=== PATIENT | male | born 1985 | race Caucasian/White ===

== ENCOUNTER 2017-04-09 16:15 | Emergency (ER) | payer OTHER ==
[2017-04-09 16:43] VITALS: BP 110/55; PULSE 104; TEMP 98.6; BMI 31.2
--- NOTE | 2017-04-09 16:44 | PDOC ---
Rapid Medical Evaluation Time Seen by Provider: 04/09/17 16:37 Medical Evaluation: Allergies Allergy/AdvReac Type Severity Reaction Status Date / Time No Known Allergies Allergy Verified 08/16/14 16:37 04/09/17 16:38 I have performed a brief in-person evaluation of this patient. The patient presents with a chief complaint of: hx of migraines, RAMIREZ since friday , saw doctor on friday, given amoxillicin for strep, + change in vision with "floaters", +nausea, +photophobia with sunlight, Tylenol taken without relief, last taken this morning at 11 am, received "shot" from PCP, no relief Pertinent physical exam findings: no focal neurological deficits I have ordered the following: IVF, Toradol, Reglan, Benadryl The patient will proceed to the ED for further evaluation.
[2017-04-09] MEDS ORDERED: KETOROLAC TROMETHAMINE 30 MG/1 ML VIAL IVPUSH ONE (16:45)
[2017-04-09] MEDS ORDERED: SODIUM CHLORIDE 0.9% 1000 ML INFUS.BAG IV ONE (16:45)
[2017-04-09] MEDS ORDERED: METOCLOPRAMIDE HCL INJECTION 10 MG/2 ML VIAL IVPUSH ONE (16:45)
--- NOTE | 2017-04-09 18:12 | PDOC ---
History of Present Illness - General Chief Complaint: Headache Stated Complaint: HEADACHE Time Seen by Provider: 04/09/17 16:37 History Source: Patient Exam Limitations: No Limitations - History of Present Illness Initial Comments: 04/09/17 18:07 Patient came for evaluation of persistent frontal and maxillary sinus headache. Patient was treated with Augmentin 4 days ago for a strep infection. was not tested but went and saw his PMD who identified a probable strep pharyngitis that patient admits to having upper respiratory infection symptoms as well. Since that time has had some ringing in to his ears, continued nasal congestion that is clearing where it had been a thick green mucus. Patient denies fever, denies visual changes, denies any numbness or tingling to hands or feet or any other neurologic changes. Used ibuprofen last night with some relief. Severity: Yes: mild, moderate Associated Symptoms: reports: ringing in ears. denies: fever/chills Past History - Travel Traveled outside of the country in the last 30 days: No Close contact w/someone who was outside of country & ill: No - Past Medical History Allergies/Adverse Reactions: Allergies Allergy/AdvReac Type Severity Reaction Status Date / Time No Known Allergies Allergy Verified 04/09/17 16:42 Home Medications: Ambulatory Orders Quetiapine Fumarate [Seroquel] 200 mg PO AM 08/16/14 Quetiapine Fumarate [Seroquel] 400 mg PO HS 08/16/14 Amox-Tr/K Cl [Augmentin 875Mg Tablet] 1 tab PO BID #14 tablet 04/09/17 Amoxicillin/Potassium Clav [Augmentin 875-125 Tablet] 1 each PO BID 04/09/17 COPD: No Psychiatric Problems: Yes (SCHIZO-EFFECTIVE) - Suicide/Smoking/Psychosocial Hx Smoking History: Never smoked Information on smoking cessation initiated: No Hx Alcohol Use: No Drug/Substance Use Hx: No Substance Use Type: None Review of Systems - Review of Systems Able to Perform ROS?: Yes Is the patient limited Micronesian proficient: Yes Constitutional: Yes: Symptoms Reported, See HPI, Malaise. No: Chills, Fever HEENTM: Yes: Symptoms Reported, See HPI, Nose Congestion. No: Eye Pain, Throat Pain Respiratory: Yes: See HPI. No: Symptoms reported, Cough : No: Symptoms Reported Musculoskeletal: Yes: Symptoms Reported Integumentary: Yes: See HPI. No: Symptoms Reported Neurological: Yes: Symptoms reported, See HPI, Headache (frontal ) All Other Systems: Reviewed and Negative *Physical Exam - Vital Signs Last Vital Signs Temp Pulse Resp BP Pulse Ox 98.6 F 104 H 19 110/55 99 04/09/17 16:38 04/09/17 16:38 04/09/17 16:38 04/09/17 16:38 04/09/17 16:38 - Physical Exam General Appearance: Yes: Nourished, Appropriately Dressed, Apparent Distress HEENT: positive: MADINA, Pharynx Normal, Nasal Congestion, Rhinorrhea, Sinus Tenderness (fullness and tender to frontal and max sinuses ). negative: Normal ENT Inspection, TMs Normal (bilateral congested, landmarks visualized, but congested) Neck: positive: Supple. negative: Tender, Lymphadenopathy (R), Lymphadenopathy (L) Respiratory/Chest: positive: Lungs Clear, Normal Breath Sounds Gastrointestinal/Abdominal: positive: Soft. negative: Tender Extremity: positive: Normal Capillary Refill, Normal Inspection. negative: Tender Integumentary: positive: Dry, Warm, Pale Neurologic: positive: tile picker II-XII NML intact, Fully Oriented, Alert, Normal Mood/ Affect, Normal Response, Motor Strength 5/5 Progress Note - Progress Note Progress Note: Take, will continue Augmentin for additional week to treat sinusitis and have patient continue conservative measures. *DC/Admit/Observation/Transfer Diagnosis at time of Disposition: Sinus headache - Discharge Dispostion Disposition: HOME Condition at time of disposition: Stable Admit: No - Prescriptions Prescriptions: Amox-Tr/K Cl [Augmentin 875Mg Tablet] 1 tab PO BID #14 tablet - Referrals Referrals: Gabriele Watts MD [Primary Care Provider] - - Patient Instructions Printed Discharge Instructions: DI for Sinusitis Additional Instructions: Rest, drink lots of fluids: Teas, water, soups Saltwater gargles. Consider humidifier in room at night Steamy showers/seem to face break up mucus Avoid contact with allergens, exposure to pollens, close windows on a windy day Lots of handwashing and good hygiene Tylenol or Motrin for fever and pain Continue Augmentin for additional one week Followup with private physician in one to 2 days as needed Return to emergency department for worsened symptoms, fevers, dehydration - Post Discharge Activity
== END 2017-04-09 18:16 | disposition home or self-care (01) ==
LOC: JERFT 16:15
DX: J32.0 Chronic maxillary sinusitis (principal); J32.1 Chronic frontal sinusitis
CPT/HCPCS: 99281-25

== ENCOUNTER 2017-05-16 19:36 | Inpatient (IN) | payer OTHER ==
--- NOTE | 2017-05-16 19:59 | PDOC ---
Rapid Medical Evaluation Time Seen by Provider: 05/16/17 19:53 Medical Evaluation: Allergies Allergy/AdvReac Type Severity Reaction Status Date / Time No Known Allergies Allergy Verified 05/16/17 19:54 05/16/17 19:57 I have performed a brief in-person evaluation of this patient. The patient presents with a chief complaint of:Numbness to R hand an hr and 1/2 ago. Dx w/ several b/l subacute SDH on MRI 2 days ago and was seen in ED yesterday where plan was to admit but pt signed out AMA. NS is Dr Gómez. No RAMIREZ, dizziness, blurry vision or focal weakness Pertinent physical exam findings: Stable w/ no obvious asymmetry, strength intact b/l I have ordered the following:labs The patient will proceed to the ED for further evaluation.
--- NOTE | 2017-05-16 20:22 | PDOC ---
History of Present Illness <Janie Samson - Last Filed: 05/16/17 21:30> - History of Present Illness Initial Comments: 05/16/17 20:55 The patient is a 31 year old male with a history of schizo-affective disorder who presents for evaluation of numbness. 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 He reports onset of severe headache at the beginning of April 2017. He states that he never underwent imaging of his head and since then his symptoms have improved with him only having intermittent headaches currently. He states that he had an MRI done on an outpatient basis 2 day ago and was found to have multiple subdural hematomas with a 17mm left frontalpariatel hematoma and 15mm right frontal parietal hematoma with subacute blood products without signs of herniation prompting his neurologist to sent him to the ED for further evaluation yesterday. The patient left AMA after eval by Dr. Gómez with neurosurgery, but re-presents today after a 20 minute episode of right arm numbness prompting his presentation today. The patient is currently asymptomatic and denies any fevers, chills, headache, vision changes, SOB, chest pain, nausea, vomiting, abdominal pain, or changes with urination or bowel movements. <León Cortez - Last Filed: 05/16/17 22:04> <Yazmin Montes - Last Filed: 05/17/17 22:56> - General Chief Complaint: Revisit,Radiology Variance Stated Complaint: NUMBNESS Time Seen by Provider: 05/16/17 19:53 Past History <Janie Samson - Last Filed: 05/16/17 21:30> - Past Medical History COPD: No Psychiatric Problems: Yes (SCHIZO-EFFECTIVE) - Suicide/Smoking/Psychosocial Hx Smoking History: Never smoked Hx Alcohol Use: No Drug/Substance Use Hx: No Substance Use Type: None <León Cortez - Last Filed: 05/16/17 22:04> <Yazmin Montes - Last Filed: 05/17/17 22:56> - Past Medical History Allergies/Adverse Reactions: Allergies Allergy/AdvReac Type Severity Reaction Status Date / Time No Known Allergies Allergy Verified 05/16/17 19:54 Home Medications: Ambulatory Orders Quetiapine Fumarate [Seroquel] 200 mg PO AM 08/16/14 Review of Systems - Review of Systems Comments:: 05/16/17 20:56 Constitutional: No fevers, chills, fatigue, malaise HEENT: No Rhinorrhea, nasal congestion, visual changes Cardiovascular: No chest pain, syncope, palpitations, lightheadedness Respiratory: No Cough, SOB, Hemoptysis, Gastrointestinal: No Abdominal pain, Nausea, Vomiting, Constipation, Diarrhea, Melena Genitourinary: No Dysuria, Frequency, Urgency, Hesitancy, Hematuria, Flank pain Musculoskeletal: No Myalgia, arthralgia Skin: No rashes, itching, bruising, pallor Neurologic: Numbness. No Headache, Dizziness, Weakness, or Tingling Psychiatric: No Hallucinations. No SI or HI <León Cortez - Last Filed: 05/16/17 22:04> *Physical Exam - Vital Signs Last Vital Signs Temp Pulse Resp BP Pulse Ox 98.7 F 78 19 137/102 98 05/16/17 19:54 05/16/17 19:54 05/16/17 19:54 05/16/17 19:54 05/16/17 19:54 <Janie Samson - Last Filed: 05/16/17 21:30> - Vital Signs Last Vital Signs Temp Pulse Resp BP Pulse Ox 98.7 F 78 19 137/102 98 05/16/17 19:54 05/16/17 19:54 05/16/17 19:54 05/16/17 19:54 05/16/17 19:54 - Physical Exam Comments: 05/16/17 20:57 General Appearance: Nourished. No Apparent Distress HEENT: EOMI, MADINA. No Pharyngeal Erythema, Tonsillar Exudate, Tonsillar Erythema Neck: No Cervical Lymphadenopathy Respiratory/Chest: Lungs Clear, Normal Breath Sounds. No Crackles, Rales, Rhonchi, Wheezing Cardiovascular: Regular Rhythm, Regular Rate. No Murmur, Gallops, Rubs Gastrointestinal/Abdominal: Normal Bowel Sounds, Soft. No Guarding, Rebound, Tenderness Musculoskeletal: No CVA Tenderness Extremity: Normal Capillary Refill Integumentary: Normal Color, Dry, Warm Neurologic: slag worker II-XII NML intact, Fully Oriented, Alert, Normal Mood/Affect, Normal Response, Motor Strength 5/5. Normal Finger to Nose and Heel to [place] <León Cortez - Last Filed: 05/16/17 22:04> - Vital Signs Last Vital Signs Temp Pulse Resp BP Pulse Ox 99.4 F 77 18 119/69 100 05/17/17 22:00 05/17/17 22:00 05/17/17 22:00 05/17/17 22:00 05/17/17 21:00 <Yazmin Montes - Last Filed: 05/17/17 22:56> ED Treatment Course - LABORATORY CBC & Chemistry Diagram: 05/16/17 20:56 05/16/17 20:56 - ADDITIONAL ORDERS Additional order review: 05/16/17 20:56 RBC 5.58 MCV 88.3 MCHC 34.1 RDW 13.8 MPV 10.7 Neutrophils % 65.5 Lymphocytes % 25.0 Monocytes % 6.4 Eosinophils % 2.3 D Basophils % 0.8 <Janie Samson - Last Filed: 05/16/17 21:30> - LABORATORY CBC & Chemistry Diagram: 05/16/17 20:56 05/16/17 20:56 <León Cortez - Last Filed: 05/16/17 22:04> - LABORATORY CBC & Chemistry Diagram: 05/16/17 20:56 05/16/17 20:56 - ADDITIONAL ORDERS Additional order review: Laboratory Results 05/17/17 12:10 Blood Type O POSITIVE Antibody Screen Negative 05/16/17 20:56 RBC 5.58 MCV 88.3 MCHC 34.1 RDW 13.8 MPV 10.7 Neutrophils % 65.5 Lymphocytes % 25.0 Monocytes % 6.4 Eosinophils % 2.3 D Basophils % 0.8 <Yazmin Montes - Last Filed: 05/17/17 22:56> Medical Decision Making - Medical Decision Making 05/16/17 21:10 Dr. La was paged and notified via phone service. Second page was placed at 21:30. <Janie Samson - Last Filed: 05/16/17 21:30> - Medical Decision Making 05/16/17 20:57 The patient is a 31 year old male with a history of schizo-affective disorder who presents for evaluation of numbness. The patient's symptoms are likely related to the patient's subdural hematomas. We believe that the patient should be admitted for further management and monitoring. We discussed at length with the patient about being admitted to the hospital and the patient informed us that he will not leave AMA again and wishes to cooperate with the admission. We will obtain a cbc, cmp, coags to evaluate further. The patient appears clinically well on exam with a normal neurological exam. We will continue to monitor and reassess. 05/16/17 22:04 We discussed the case with Dr. La who accepted the patient for admission. <León Cortez - Last Filed: 05/16/17 22:04> *DC/Admit/Observation/Transfer <Janie Samson - Last Filed: 05/16/17 21:30> - Discharge Dispostion Admit: Yes <León Cortez - Last Filed: 05/16/17 22:04> <Yazmin Montes - Last Filed: 05/17/17 22:56> Diagnosis at time of Disposition: Subdural hematoma - Discharge Dispostion Condition at time of disposition: Stable Attending Attestation - Resident Resident Name: Lóen Cortez - ED Attending Attestation I have performed the following: I have examined & evaluated the patient, The case was reviewed & discussed with the resident, I agree w/resident's findings & plan - HPI HPI: 05/17/17 22:54 Pt comes for admission. He was here yesterday for the same. He had to leave fur to personal issued. He returns now with nonspecific neurologic complaints. - Physicial Exam PE: 05/17/17 22:55 Agree with resident exam. - Medical Decision Making 05/17/17 22:56 Pt admitted to [facility]. We will not repeat imaging studies. <Yazmin Montes - Last Filed: 05/17/17 22:56>
[2017-05-16 21:04] LABS: BASO % 0.8 % (0-2.0); EOS % 2.3 % (0-4.5); HEMATOCRIT 49.2 % (35.4-49); HEMOGLOBIN 16.8 GM/dL (11.7-16.9); MCH 30.1 pg (25.7-33.7); MCHC 34.1 g/dl (32.0-35.9); MEAN CELL VOLUME 88.3 fl (80-96); MEAN PLT VOLUME 10.7 fl (7.5-11.1); MONO % 6.4 % (3.8-10.2); NEUT % 65.5 % (42.8-82.8); PLATELET COUNT 176 K/MM3 (134-434); RBC 5.58 M/mm3 (4.00-5.60); RDW 13.8 % (11.9-15.9); WHITE BLOOD COUNT 8.8 K/mm3 (4.0-10.0)
[2017-05-16 21:29] LABS: INR 1.04 (0.82-1.09); PROTHROMBIN TIME (PATIENT) 11.7 SEC (9.98-11.88)
[2017-05-16 21:44] LABS: ALBUMIN 4.1 g/dl (3.4-5.0); ALK PHOS 97 U/L (45-117); ANION GAP 12 (8-16); BILIRUBIN,TOTAL 0.9 mg/dL (0.2-1.0); BLOOD UREA NITROGEN 14 mg/dL (7-18); CALCIUM 8.6 mg/dL (8.5-10.1); CHLORIDE 105 mmol/L (98-107); CO2 26 mmol/L (21-32); CREATININE 1.1 mg/dL (0.7-1.3); GLUCOSE,RANDOM 82 mg/dL (74-106); POTASSIUM 3.9 mmol/L (3.5-5.1); SGOT/AST 20 U/L (15-37); SGPT/ALT 30 U/L (12-78); SODIUM 143 mmol/L (136-145); TOT PROT 8.1 g/dl (6.4-8.2)
--- NOTE | 2017-05-16 22:40 | HP ---
Admitting History and Physical - Admission History of Present Illness: The patient is a 31 year old male with a history of schizo-affective disorder who presents for evaluation of numbness. 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 He reports onset of severe headache at the beginning of April 2017. He states that he never underwent imaging of his head and since then his symptoms have improved with him only having intermittent headaches currently. He states that he had an MRI done on an outpatient basis 2 day ago and was found to have multiple subdural hematomas with a 17mm left frontalpariatel hematoma and 15mm right frontal parietal hematoma with subacute blood products without signs of herniation prompting his neurologist to sent him to the ED for further evaluation yesterday. The patient left AMA after eval by Dr. Gómez with neurosurgery, but re-presents today after a 20 minute episode of right arm numbness prompting his presentation today. The patient is currently asymptomatic and denies any fevers, chills, headache, vision changes, SOB, chest pain, nausea, vomiting, abdominal pain, or changes with urination or bowel movements. History Source: Patient, Medical Record Limitations to Obtaining History: No Limitations - Smoking History Smoking history: Never smoked - Alcohol/Substance Use Hx Alcohol Use: No - Social History Usual Living Arrangement: Yes: With Parent ADL: Independent History of Recent Travel: No Home Medications - Allergies Allergies/Adverse Reactions: Allergies Allergy/AdvReac Type Severity Reaction Status Date / Time No Known Allergies Allergy Verified 05/16/17 19:54 - Home Medications Home Medications: Ambulatory Orders Quetiapine Fumarate [Seroquel] 200 mg PO AM 08/16/14 Review of Systems - Review of Systems Constitutional: reports: Other (headache >2 moths ( since mid Mar )). denies: Chills, Fever, Lethargy, Loss of Appetite HENT: reports: No Symptoms Neck: reports: No Symptoms Cardiovascular: reports: No Symptoms. denies: Chest Pain, Palpitations, Shortness of Breath Respiratory: reports: No Symptoms Gastrointestinal: reports: No Symptoms Genitourinary: reports: No Symptoms Breasts: reports: No Symptoms Reported Musculoskeletal: reports: No Symptoms Integumentary: reports: No Symptoms Neurological: reports: No Symptoms, Other (motor 5/5 equal bilaterally). denies : Confusion, Incoordination, Numbness, Parasthesia Endocrine: reports: No Symptoms Hematology/Lymphatic: reports: No Symptoms Psychiatric: reports: No Symptoms Physical Examination Vital Signs: Vital Signs Temperature 98.7 F 05/16/17 19:54 Pulse Rate 78 05/16/17 19:54 Respiratory Rate 19 05/16/17 19:54 Blood Pressure 137/102 05/16/17 19:54 O2 Sat by Pulse Oximetry (%) 98 05/16/17 19:54 Constitutional: Yes: Well Nourished, No Distress, Calm Eyes: Yes: Conjunctiva Clear, EOM Intact HENT: Yes: Atraumatic, Normocephalic Neck: Yes: Supple, Trachea Midline Cardiovascular: Yes: Regular Rate and Rhythm Respiratory: Yes: Regular Gastrointestinal: Yes: Normal Bowel Sounds Renal/: Yes: WNL Breast(s): Yes: WNL Musculoskeletal: Yes: WNL. No: Muscle Pain, Muscle Weakness Extremities: Yes: WNL. 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
[2017-05-17 01:23] VITALS: BMI 31.1
--- NOTE | 2017-05-17 09:06 | PN ---
Progress Note (short form) - Note Progress Note: NEUROSURGERY Pt seen night in ED H/A with N/V 6 weeks ago after MMA bout, H/A better since 3 weeks ago, only mild now 5/10 Been taking motrin Seen in ED night and advised to consider SDH evacuation, pt signed out AMA Re-presented yesterday after 20 min episode of RT arm numbness, which subsided General exam unremarkable CN/Motor/Sensory/DTR/gait/cerebellar exams normal Brain MRI- moderate B fronto-parietal subacute-chronic SDH with cortical mass effect, max diameter about 1.6-1.7 cm; L slightly larger than R; no brain edema , HCP, shift Pros and cons of expectant tx vs surgical drainage once again discussed and pt opts for surgical intervention Risks of surgery- bleeding, infection, stroke, sz, coma, DVT/PE, coma, , general anesthesia Keppra for sz prophylaxis/control Repeat had CT to r/o acute blood Logistics issue with his insurance plan discussed on elective procedure Hematology input to assess role of platelets given prior motrin use All questions answered Care d/w TEODORA
[2017-05-17] MEDS: levETIRAcetam 500 MG TABLET (FP) PO SCH ×2 (10:18→21:44)
--- NOTE | 2017-05-17 13:36 | CONSULT ---
Consult Consult Specialty:: Hematology Referred by:: Neurosurgery Reason for Consultation:: Requires neurosurgery 05/19. Concern about hemostasis with recent NSAID use. - History of Present Illness Chief Complaint: As above. Patient with headache, and history of trauma ( sparring - martial art). Found to have SDH. - History Source History Provided By: Patient Limitations to Obtaining History: No Limitations - Past Medical History Heme/Onc: No: Bleeding Disorder, Hypercoaguable State, Thrombocytopenia Psych: Yes: Other (Reported schizoaffective disorder) - Past Surgical History Past Surgical History: Yes: None - Alcohol/Substance Use Hx Alcohol Use: No - Smoking History Smoking history: Never smoked - Social History ADL: Independent History of Recent Travel: No Home Medications - Allergies Allergies/Adverse Reactions: Allergies Allergy/AdvReac Type Severity Reaction Status Date / Time No Known Allergies Allergy Verified 05/16/17 19:54 - Home Medications Home Medications: Ambulatory Orders Quetiapine Fumarate [Seroquel] 200 mg PO AM 08/16/14 Review of Systems - Review of Systems Constitutional: reports: No Symptoms. denies: Chills, Diaphoresis Eyes: reports: No Symptoms HENT: reports: No Symptoms Neck: reports: No Symptoms Cardiovascular: denies: Chest Pain, Shortness of Breath Respiratory: denies: Cough Gastrointestinal: denies: Abdominal Pain, Constipation, Diarrhea Genitourinary: reports: No Symptoms Musculoskeletal: reports: No Symptoms Integumentary: denies: Bruising Neurological: reports: Headache Endocrine: reports: No Symptoms Hematology/Lymphatic: denies: Easily Bruised, Excessive Bleeding Physical Exam Vital Signs: Vital Signs Temperature 98 F 05/17/17 10:20 Pulse Rate 84 05/17/17 10:20 Respiratory Rate 18 05/17/17 10:20 Blood Pressure 125/54 05/17/17 10:20 O2 Sat by Pulse Oximetry (%) 100 05/17/17 09:00 Constitutional: Yes: Well Nourished, Calm. No: Anxious, Pallor Eyes: Yes: Conjunctiva Clear HENT: Yes: Atraumatic, Normocephalic Neck: Yes: Trachea Midline. No: Lymphadenopathy Cardiovascular: Yes: Regular Rate and Rhythm, S1, S2 Respiratory: Yes: Regular, CTA Bilaterally Gastrointestinal: Yes: Normal Bowel Sounds. No: Soft, Distention Musculoskeletal: Yes: WNL Extremities: Yes: Cyanosis. No: Deformity Edema: No Integumentary: Yes: Tattoos. No: Body Piercing Neurological: Yes: Alert, Oriented ...Motor Strength: WNL Psychiatric: Yes: WNL Labs: CBC, BMP 05/16/17 20:56 05/16/17 20:56 Assessment/Plan Recently discovered SDH, likeky occurring secondary to trauma, pending neurosurgery procedure 05/19. Concern about use of Motrin on 05/15. No use of ASA or other NSAIDS since. No prior symptoms suggestive a bleeding diathesis. Platelet inhibition with NSAIDs is reversible and its effects are expected to be observed only while the drug is present. Since ibruprofen's half-life is short, its anti-platelet effects are expected to be resolved by 24 hours after the last administered dose. No special interventions warranted in anticipation of surgery on Friday. Please call if questions.
--- NOTE | 2017-05-17 14:37 | PN ---
Progress Note (short form) - Note Progress Note: pstient seen and examined in room mother and step dad at bedside able to get out of bed / ambulate and full motor strenght Vital Signs Period Temp Pulse Resp BP Sys/Leblanc Pulse Ox Last 24 Hr 97.8 F-98.7 F 78-87 18-20 125-138/54-102 98-100 CBC, BMP 05/16/17 20:56 05/16/17 20:56 Active Medications Potassium Chloride/Dextrose/Sod Cl (D5-1/2ns+20 Meq Kcl -) 20 meq in 1,000 mls @ 100 mls/hr IV ASDIR MANUEL Levetiracetam (Keppra -) 500 mg PO BID MANUEL Last Admin: 05/17/17 10:18 Dose: 500 mg Speech fluent Motor 5/5 bilaterally equal sensory no deficits discussed findings with parents and patient concerns and questions answered consent signed for intervention on Friday, signed earlier this am was [place] and evaluated by Dr Gómez earlier repeat CT done this am --pending official reading on Keppra as prophylaxis Problem List - Problems (1) Subdural hematoma Code(s): I62.00 - NONTRAUMATIC SUBDURAL HEMORRHAGE, UNSPECIFIED (2) 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
--- NOTE | 2017-05-18 09:37 | PN ---
Progress Note (short form) - Note Progress Note: NEUROSURGERY No new complaint General exam unremarkable CN/Motor/Sensory/DTR/gait/cerebellar exams normal Brain MRI- moderate B fronto-parietal subacute-chronic SDH with cortical mass effect, max diameter about 1.6-1.7 cm; L slightly larger than R; no brain edema , HCP, shift Head CT- moderate to large B SDH, acute/subacute on chronic. cortical mass effect the same Pros and cons of expectant tx vs surgical drainage once again discussed and pt opts for surgical intervention Risks of surgery- bleeding, infection, stroke, sz, coma, DVT/PE, coma, , general anesthesia Keppra for sz prophylaxis/control Appreciate Hematology input in use All questions answered OR tomorrow about 11 AM NPO after midnight T & X for OR
[2017-05-18] MEDS: levETIRAcetam 500 MG TABLET (FP) PO SCH ×2 (10:30→21:17)
--- NOTE | 2017-05-18 14:46 | PN ---
Progress Note (short form) - Note Progress Note: pstient seen and examined in room comfortable able to get out of bed / ambulate and full motor strenght SH never smoked no ETOH NO drugs surgery --right shoulder surgery Labial tear 2010 uncomplicated NO significant PMH Vital Signs Period Temp Pulse Resp BP Sys/Leblanc Pulse Ox Last 24 Hr 97.3 F-99.4 F 64-82 18-20 105-128/59-76 98-100 neck supple heart s1/s2 reg Lungs cleat bilat abd soft non tender ext FROM neuro - intact -AO X3 speech fluent motor 5/5 sensory intact CBC, BMP 05/16/17 20:56 05/16/17 20:56 Active Medications Potassium Chloride/Dextrose/Sod Cl (D5-1/2ns+20 Meq Kcl -) 20 meq in 1,000 mls @ 100 mls/hr IV ASDIR MANUEL Levetiracetam (Keppra -) 500 mg PO BID MANUEL Last Admin: 05/17/17 10:18 Dose: 500 mg Patient understands and sgrees to intervention Dr Gómez saw patient earlier and discussed surgery ( as per patient ) scheduled in am for evacuation of SDH Problem List - Problems (1) Subdural hematoma Code(s): I62.00 - NONTRAUMATIC SUBDURAL HEMORRHAGE, UNSPECIFIED (2) 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
[2017-05-19] MEDS ORDERED: BACITRACIN 15 GM TUBE TOPICAL OINTMENT TP ONE
[2017-05-19] MEDS ORDERED: D5-1/2NS+20 MEQ KCL - 20 MEQ/1,000 ML INFUS.BAG IV SCH (00:01)
[2017-05-19] MEDS: levETIRAcetam 500 MG TABLET (FP) PO SCH ×3 (09:53→21:33)
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
[2017-05-19] MEDS ORDERED: LIDOCAINE 1%/EPI 1:100000 (20 ML MULTI DOSE VIAL) ONE (11:04)
[2017-05-19] MEDS ORDERED: BACITRACIN 15 GM TUBE TOPICAL OINTMENT ONE (11:04)
[2017-05-19] MEDS ORDERED: THROMBIN (BOVINE) 5,000 UNIT VIAL TP ONE ×2 (11:04→12:21)
[2017-05-19] MEDS ORDERED: BUPIVACAINE HCL/PF 0.5% (5MG/ML) 10 ML VIAL ONE (11:04)
[2017-05-19] MEDS ORDERED: ROCURONIUM BROMIDE 50 MG/5 ML VIAL ONE (11:16)
[2017-05-19] MEDS ORDERED: PROPOFOL 20 ML ONE ×3 (11:16→14:10)
--- NOTE | 2017-05-19 11:16 | PN ---
Progress Note (short form) - Note Progress Note: NEUROSURGERY No new complaint General exam unremarkable CN/Motor/Sensory/DTR/gait/cerebellar exams normal Risks of surgery informed previously - bleeding, infection, stroke, sz, coma, DVT/PE, coma, , general anesthesia Keppra for sz prophylaxis/control All questions answered Mother at bedside
[2017-05-19] MEDS ORDERED: ceFAZolin SODIUM 1 GM VIAL IVPB ONE (11:49)
[2017-05-19] MEDS ORDERED: ceFAZolin SODIUM 1 GM VIAL ONE ×2 (11:59→15:51)
[2017-05-19] MEDS ORDERED: BACITRACIN 50,000 UNITS VIAL TP ONE (12:21)
[2017-05-19] MEDS ORDERED: LIDOCAINE 1%/EPI 1:100000 (20 ML MULTI DOSE VIAL) IJ ONE (12:21)
--- NOTE | 2017-05-19 14:31 | OP ---
Operative Note - Note: Operative Date: 05/19/17 Pre-Operative Diagnosis: B fronto-parietal large acute/subacute on chronic SDH Operation: R and L frontal craniotomies for drainage of sudural hematoma, B drain placement; microdissection Findings: acute-subacute on chronic SDH Implants: Regina cranial plating system B Post-Operative Diagnosis: Same as Pre-op Surgeon: Boyd Gómez Anesthesiologist/GRILL PREP COOK: Kiana Bishop MD Anesthesia: General Specimens Removed: subdural fluid for gram stain and culture Estimated Blood Loss (mls): 100 Operative Report Dictated: Yes
[2017-05-19] MEDS ORDERED: ONDANSETRON 4 MG/2 ML VIAL IVPUSH PRN ×2 (14:35→14:47)
[2017-05-19] MEDS ORDERED: ACETAMINOPHEN WITH CODEINE 300MG/30MG TABLET PO PRN (14:35)
--- NOTE | 2017-05-19 14:44 | PN ---
Progress Note (short form) - Note Progress Note: NEUROSURGERY In PACU AF, VSS; O2 sat 100% No complaint General exam unremarkable Slightly sleepy still; following commands CN/Motor/Sensory exams normal Intra-op findings d/w mother All questions answered ICU for neuro monitoring COnt Keppra Head CT in AM
[2017-05-19] MEDS ORDERED: D5-NS + 20 MEQ KCL - 20 MEQ/1,000 ML INFUS.BAG IV SCH (14:45)
[2017-05-19] MEDS: D5-1/2NS+20 MEQ KCL - 20 MEQ/1,000 ML INFUS.BAG IV SCH (14:51)
[2017-05-19] MEDS: CEFAZOLIN 1 GM/D5W 1 GM/50 ML BAG IVPB SCH ×2 (15:00→21:33)
[2017-05-19] MEDS ORDERED: LACTATED RINGERS SOLUTION 1,000 ML IV SCH (15:00)
[2017-05-19] MEDS ORDERED: ONDANSETRON 4 MG/2 ML VIAL ONE (16:49)
[2017-05-19] MEDS: morphine SULFATE 4 MG/ML VIAL IVPUSH PRN ×2 (18:36→23:28)
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
[2017-05-19] MEDS: MUPIROCIN 2% TOPICAL OINTMENT FOR DECOLONIZATION NS SCH (21:33)
[2017-05-19] MEDS: DOCUSATE SODIUM 100 MG CAPSULE (FP) PO SCH (21:33)
[2017-05-19] MEDS: CHLORHEXIDINE GLUCONATE 4% CLEANSER FOR DECOLONIZATION TP SCH (21:33)
[2017-05-19] MEDS ORDERED: QUEtiapine FUMARATE 200 MG TABLET PO STA (21:42)
[2017-05-19] MEDS: QUEtiapine FUMARATE 200 MG TABLET PO SCH (23:29)
[2017-05-20] MEDS: CEFAZOLIN 1 GM/D5W 1 GM/50 ML BAG IVPB SCH ×2 (05:09→11:49)
[2017-05-20] MEDS: DOCUSATE SODIUM 100 MG CAPSULE (FP) PO SCH ×3 (06:09→21:20)
[2017-05-20 06:53] LABS: HEMATOCRIT 47.1 % (35.4-49); HEMOGLOBIN 15.8 GM/dL (11.7-16.9); MCH 30.2 pg (25.7-33.7); MCHC 33.6 g/dl (32.0-35.9); MEAN CELL VOLUME 89.8 fl (80-96); MEAN PLT VOLUME 10.8 fl (7.5-11.1); PLATELET COUNT 157 K/MM3 (134-434); RBC 5.24 M/mm3 (4.00-5.60); RDW 13.6 % (11.9-15.9); WHITE BLOOD COUNT 14.7 K/mm3 (4.0-10.0)
[2017-05-20 07:12] LABS: INR 1.07 (0.82-1.09); PROTHROMBIN TIME (PATIENT) 12.1 SEC (9.98-11.88)
[2017-05-20 07:15] LABS: ACTIVATED PTT 27.4 SECONDS (26.9-34.4)
[2017-05-20 07:23] LABS: ANION GAP 11 (8-16); BLOOD UREA NITROGEN 14 mg/dL (7-18); CALCIUM 8.3 mg/dL (8.5-10.1); CHLORIDE 102 mmol/L (98-107); CO2 27 mmol/L (21-32); GLUCOSE,RANDOM 123 mg/dL (74-106); MAGNESIUM 2.1 mg/dL (1.8-2.4); PHOSPHOROUS 4.6 mg/dL (2.5-4.9); POTASSIUM 4.5 mmol/L (3.5-5.1); SODIUM 140 mmol/L (136-145)
--- NOTE | 2017-05-20 08:24 | PN ---
Progress Note (short form) - Note Progress Note: NEUROSURGERY POD #1 In ICU Mild H/A, no N/V, no sz Had rare SVT's which he had earlier and had undergone w/u AF, VSS; O2 sat 100% Drain R 75 overnight +120 cc, L 50 cc + 15 cc General exam unremarkable A/A/Ox4 CN/Motor/Sensory exams non-focal Intra-op findings d/w pt ICU for neuro monitoring Cont subdural drain Cont Keppra Head CT this AM and decide on diet and drains
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
[2017-05-20] MEDS ORDERED: PT OWN MED DRAWER 7, Y5N ONE (09:51)
[2017-05-20] MEDS: levETIRAcetam 500 MG TABLET (FP) PO SCH ×2 (09:56→21:21)
[2017-05-20] MEDS: PANTOPRAZOLE SODIUM 40 MG VIAL IVPUSH SCH (09:56)
[2017-05-20] MEDS: MUPIROCIN 2% TOPICAL OINTMENT FOR DECOLONIZATION NS SCH ×2 (09:58→21:20)
[2017-05-20] MEDS: morphine SULFATE 4 MG/ML VIAL IVPUSH PRN ×2 (11:48→21:29)
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
--- NOTE | 2017-05-20 12:25 | PN ---
Progress Note, Physician Chief Complaint: day #1 s/p crani for subdural hematoma - Current Medication List Current Medications: Active Medications Acetaminophen/Codeine Phosphate (Tylenol # 3 -) 1 tab PO Q4H PRN PRN Reason: PAIN LEVEL 4 - 6 Chlorhexidine Gluconate (Hibiclens For Decolonization -) 1 applic TP HS [facility] Last Admin: 05/19/17 21:33 Dose: 1 applic Docusate Sodium (Colace -) 100 mg PO TID [facility] Last Admin: 05/20/17 06:09 Dose: 100 mg Fentanyl (Sublimaze Injection -) 50 mcg IVPUSH [id number] PRN PRN Reason: PAIN-PACU ORDER X 4 DOSES ONLY Cefazolin Sodium (Ancef 1 Gm Premixed Ivpb -) 1 gm in 50 mls @ 100 mls/hr IVPB Q6H-IV [facility] Stop: 05/20/17 14:59 Last Admin: 05/20/17 11:49 Dose: 100 mls/hr Potassium Chloride/Dextrose/Sod Cl (D5-1/2ns+20 Meq Kcl -) 20 meq in 1,000 mls @ 100 mls/hr IV ASDIR [facility] Last Admin: 05/19/17 14:51 Dose: 100 mls/hr Levetiracetam (Keppra -) 500 mg PO BID [facility] Last Admin: 05/20/17 09:56 Dose: 500 mg Morphine Sulfate (Morphine Sulfate) 2 mg IVPUSH Q4H PRN PRN Reason: PAIN LEVEL 7 - 10 Last Admin: 05/20/17 11:48 Dose: 2 mg Mupirocin (Bactroban Ointment (For Decolonization) -) 1 applic NS BID [facility] Stop: 05/24/17 21:59 Last Admin: 05/20/17 09:58 Dose: 1 applic Ondansetron HCl (Zofran Injection) 4 mg IVPUSH Q6H PRN PRN Reason: NAUSEA Ondansetron HCl (Zofran Injection) 4 mg IVPUSH Q6H PRN PRN Reason: NAUSEA AND/OR VOMITING Last Admin: 05/19/17 16:47 Dose: 4 mg Pantoprazole Sodium (Protonix Iv) 40 mg IVPUSH DAILY [facility] Last Admin: 05/20/17 09:56 Dose: 40 mg Quetiapine Fumarate (Seroquel -) 200 mg PO [facility] Last Admin: 05/19/17 23:29 Dose: 200 mg - Objective Vital Signs: Vital Signs Temperature 97.7 F 05/20/17 10:00 Pulse Rate 72 05/20/17 11:00 Respiratory Rate 18 05/20/17 11:00 Blood Pressure 117/82 05/20/17 11:00 O2 Sat by Pulse Oximetry (%) 98 05/19/17 21:00 Labs: CBC, BMP 05/20/17 05:15 05/20/17 05:15 INR, PTT INR 1.07 (0.82-1.09) 05/20/17 05:15 Assessment/Plan Pt is day #1 s/p craniotomy for evacuation of subdural hematoma. RAMIREZ much improved, pt doing well in ICU. No anesthetic issues/complications.
--- NOTE | 2017-05-20 13:29 | PN ---
Physical Exam: SUBJECTIVE: Patient has no complaints at this time. Reports he has some pain when he moves his eyebrows but expects this as part of his procedure. He does not want any additional pain medication at this time. OBJECTIVE: Vital Signs Period Temp Pulse Resp BP Sys/Leblanc Pulse Ox Last 24 Hr 97.7 F-98.8 F 61-95 11-24 104-156/66-91 95-100 GENERAL: The patient is awake, alert, and fully oriented, in no acute distress. HEAD: +S/P evacuation w/ 2 drains under surgical bandage. EYES: PERRL, extraocular movements intact, sclera anicteric, conjunctiva clear. No ptosis. ENT: Ears normal, nares patent, oropharynx clear without exudates, moist mucous membranes. NECK: Trachea midline, full range of motion, supple. LUNGS: Breath sounds equal, clear to auscultation bilaterally, no wheezes, no crackles, no accessory muscle use. HEART: Regular rate and rhythm, S1, S2 without murmur, rub or gallop. ABDOMEN: Soft, nontender, nondistended, normoactive bowel sounds, no guarding, no rebound, no hepatosplenomegaly, no masses. EXTREMITIES: 2+ pulses, warm, well-perfused, no edema. NEUROLOGICAL: Cranial nerves II through XII grossly intact. Normal speech, gait not observed. PSYCH: Normal mood, normal affect. SKIN: Warm, dry, normal turgor, no rashes or lesions noted Laboratory Results - last 24 hr 05/20/17 05/20/17 05/20/17 05:15 05:15 05:15 WBC 14.7 H D RBC 5.24 Hgb 15.8 Hct 47.1 MCV 89.8 MCH 30.2 MCHC 33.6 RDW 13.6 Plt Count 157 MPV 10.8 PT with INR 12.10 H INR 1.07 PTT (Actin FS) 27.4 Sodium 140 Potassium 4.5 Chloride 102 Carbon Dioxide 27 Anion Gap 11 BUN 14 Creatinine 1.0 Random Glucose 123 H D Calcium 8.3 L Phosphorus 4.6 Magnesium 2.1 Active Medications Generic Name Dose Route Start Last Admin Trade Name Freq PRN Reason Stop Dose Admin Acetaminophen/Codeine Phosphate 1 tab 05/19/17 14:35 Tylenol # 3 - PO Q4H PRN PAIN LEVEL 4 - 6 Chlorhexidine Gluconate 1 applic 05/19/17 22:00 05/19/17 21:33 Hibiclens For Decolonization - TP 1 applic HS [facility] Administration Docusate Sodium 100 mg 05/19/17 22:00 05/20/17 06:09 Colace - PO 100 mg TID [facility] Administration Fentanyl 50 mcg 05/19/17 14:47 Sublimaze Injection - IVPUSH [id number] PRN PAIN-PACU ORDER X 4 DOSES ONLY Cefazolin Sodium 1 gm in 50 mls @ 100 mls/hr 05/19/17 15:00 05/20/17 11:49 Ancef 1 Gm Premixed Ivpb - IVPB 05/20/17 14:59 100 mls/hr Q6H-IV [facility] Administration Potassium Chloride/Dextrose/Sod Cl 20 meq in 1,000 mls @ 100 mls/hr 05/19/17 14:51 05/19/17 14:51 D5-1/2ns+20 Meq Kcl - IV 100 mls/hr ASDIR [facility] Administration Levetiracetam 500 mg 05/19/17 22:00 05/20/17 09:56 Keppra - PO 500 mg BID [facility] Administration Morphine Sulfate 2 mg 05/19/17 14:38 05/20/17 11:48 Morphine Sulfate IVPUSH 2 mg Q4H PRN Administration PAIN LEVEL 7 - 10 Mupirocin 1 applic 05/19/17 22:00 05/20/17 09:58 Bactroban Ointment (For Decolonization) - NS 05/24/17 21:59 1 applic BID [facility] Administration Ondansetron HCl 4 mg 05/19/17 14:35 Zofran Injection IVPUSH Q6H PRN NAUSEA Ondansetron HCl 4 mg 05/19/17 14:47 05/19/17 16:47 Zofran Injection IVPUSH 4 mg Q6H PRN Administration NAUSEA AND/OR VOMITING Pantoprazole Sodium 40 mg 05/20/17 10:00 05/20/17 09:56 Protonix Iv IVPUSH 40 mg DAILY [facility] Administration Quetiapine Fumarate 200 mg 05/19/17 22:00 05/19/17 23:29 Seroquel - PO 200 mg HS [facility] Administration ASSESSMENT/PLAN: Mr. 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 Admitted to ICU post operatively for neuro monitoring. Subdural hematoma / post op -Monitor drain -Neuro checks as indicated by Dr. Gómez -Rina I/O's -Keppra 500 bid -Pain control as written -PO after patient able to pass gas Prophylactic -SCDs -PPI -Electrolytes PRN -Zofran PRN Visit type - Emergency Visit Emergency Visit: Yes ED Registration Date: 05/17/17 Care time: The patient presented to the Emergency Department on the above date and was hospitalized for further evaluation of their emergent condition. - New Patient This patient is new to me today: Yes Date on this admission: 05/20/17 - Critical Care Critical Care patient: Yes Total Critical Care Time (in minutes): 35 Critical Care Statement: The care of this patient involved high complexity decision making to prevent further life threatening deterioration of the patient 's condition and/or to evaluate & treat vital organ system(s) failure or risk of failure.
[2017-05-20] MEDS: D5-1/2NS+20 MEQ KCL - 20 MEQ/1,000 ML INFUS.BAG IV SCH (14:57)
--- NOTE | 2017-05-20 15:15 | PN ---
Progress Note (short form) - Note Progress Note: pstient seen and examined neurologically intact C/o mild RAMIREZ no nausea or vomiting POD#1 Vital Signs Period Temp Pulse Resp BP Sys/Leblanc Pulse Ox Last 24 Hr 97.7 F-98.8 F 61-94 11-24 104-156/66-90 98-[address] / dry / 2 drains JAYNA speech fluent / no asymmetry Neuro - grossly intact neck supple heart s1/S2 lungs clear bilat abd soft non tender ext FROM [facility] CBC, BMP 05/20/17 05:15 05/20/17 05:15 Active Medications Acetaminophen/Codeine Phosphate (Tylenol # 3 -) 1 tab PO Q4H PRN PRN Reason: PAIN LEVEL 4 - 6 Chlorhexidine Gluconate (Hibiclens For Decolonization -) 1 applic TP HS [facility] Last Admin: 05/19/17 21:33 Dose: 1 applic Docusate Sodium (Colace -) 100 mg PO TID [facility] Last Admin: 05/20/17 14:52 Dose: 100 mg Fentanyl (Sublimaze Injection -) 50 mcg IVPUSH [id number] PRN PRN Reason: PAIN-PACU ORDER X 4 DOSES ONLY Levetiracetam (Keppra -) 500 mg PO BID [facility] Last Admin: 05/20/17 09:56 Dose: 500 mg Morphine Sulfate (Morphine Sulfate) 2 mg IVPUSH Q4H PRN PRN Reason: PAIN LEVEL 7 - 10 Last Admin: 05/20/17 11:48 Dose: 2 mg Mupirocin (Bactroban Ointment (For Decolonization) -) 1 applic NS BID [facility] Stop: 05/24/17 21:59 Last Admin: 05/20/17 09:58 Dose: 1 applic Ondansetron HCl (Zofran Injection) 4 mg IVPUSH Q6H PRN PRN Reason: NAUSEA Ondansetron HCl (Zofran Injection) 4 mg IVPUSH Q6H PRN PRN Reason: NAUSEA AND/OR VOMITING Last Admin: 05/19/17 16:47 Dose: 4 mg Pantoprazole Sodium (Protonix Iv) 40 mg IVPUSH DAILY [facility] Last Admin: 05/20/17 09:56 Dose: 40 mg Quetiapine Fumarate (Seroquel -) 200 mg PO HS [facility] Last Admin: 05/19/17 23:29 Dose: 200 mg # SDH s/p drainage SDH scheduled for repeat CT this am Problem List - Problems (1) Subdural hematoma Code(s): I62.00 - NONTRAUMATIC SUBDURAL HEMORRHAGE, UNSPECIFIED (2) 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
--- NOTE | 2017-05-20 16:50 | PN ---
Progress Note (short form) - Note Progress Note: NEUROSURGERY POD #[address]- R pneumoncephalus > L; residual SDH L > R with mild midline mass effect D/C R sided drain Dressing reapplied D/C ICU team
[2017-05-20] MEDS: CHLORHEXIDINE GLUCONATE 4% CLEANSER FOR DECOLONIZATION TP SCH (21:20)
[2017-05-20] MEDS: QUEtiapine FUMARATE 200 MG TABLET PO SCH (21:21)
[2017-05-21] MEDS: DOCUSATE SODIUM 100 MG CAPSULE (FP) PO SCH ×3 (06:21→21:22)
[2017-05-21 06:59] LABS: ALBUMIN 3.7 g/dl (3.4-5.0); ANION GAP 9 (8-16); BLOOD UREA NITROGEN 17 mg/dL (7-18); CALCIUM 8.4 mg/dL (8.5-10.1); CHLORIDE 103 mmol/L (98-107); CO2 29 mmol/L (21-32); GLUCOSE,RANDOM 87 mg/dL (74-106); MAGNESIUM 2.3 mg/dL (1.8-2.4); PHOSPHOROUS 4.2 mg/dL (2.5-4.9); POTASSIUM 4.2 mmol/L (3.5-5.1); SGOT/AST 12 U/L (15-37); SGPT/ALT 27 U/L (12-78); SODIUM 141 mmol/L (136-145)
[2017-05-21 07:01] LABS: ALK PHOS 89 U/L (45-117); TOT PROT 7.2 g/dl (6.4-8.2)
[2017-05-21 07:05] LABS: BASO % 0.4 % (0-2.0); EOS % 1.1 % (0-4.5); HEMOGLOBIN 16.6 GM/dL (11.7-16.9); LYMPH % 26.3 % (8-40); MCH 30.2 pg (25.7-33.7); MCHC 33.8 g/dl (32.0-35.9); MEAN CELL VOLUME 89.1 fl (80-96); MEAN PLT VOLUME 10.8 fl (7.5-11.1); MONO % 7.6 % (3.8-10.2); NEUT % 64.6 % (42.8-82.8); PLATELET COUNT 163 K/MM3 (134-434); RDW 13.8 % (11.9-15.9)
--- NOTE | 2017-05-21 08:39 | PN ---
Progress Note (short form) - Note Progress Note: NEUROSURGERY POD #2 In ICU Some incisional pain Much less frontal-periorbital pain; no N/V AF, VSS L Drain minimal output (<10cc) CV- RRR; Lungs- CTA B; Abd- benign; Ext- so sign of DVT CN- intact; Motor- 5/5; Sensation- intact; DTR- intact D/C L sided drain Dressing reapplied D/C ICU team HOB flat x 2 hours Albumin x 1
[2017-05-21] MEDS: MUPIROCIN 2% TOPICAL OINTMENT FOR DECOLONIZATION NS SCH ×2 (09:55→21:25)
[2017-05-21] MEDS: levETIRAcetam 500 MG TABLET (FP) PO SCH ×2 (09:55→21:22)
[2017-05-21] MEDS: PANTOPRAZOLE SODIUM 40 MG VIAL IVPUSH SCH (09:55)
[2017-05-21] MEDS ORDERED: ALBUMIN HUMAN 25% 100 ML VIAL IVPB ONE (10:00)
[2017-05-21] MEDS ORDERED: ALBUMIN HUMAN 25% 12.5 GM/50 ML VIAL IVPB ONE (10:00)
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
--- NOTE | 2017-05-21 11:53 | PN ---
Physical Exam: SUBJECTIVE: Mr. Esparza reports that his pain is well controlled and that he has been sitting up and eating well. He has mild stomach discomfort he attributes to his bowels "waking back up." OBJECTIVE: Vital Signs Period Temp Pulse Resp BP Sys/Leblanc Pulse Ox Last 24 Hr 98.2 F-98.8 F 66-88 10-24 109-134/62-90 99-99 GENERAL: The patient is awake, alert, and fully oriented, in no acute distress. HEAD: +s/p evacuation, both drains now removed by neurosurgery. EYES: PERRL, extraocular movements intact, sclera anicteric, conjunctiva clear. No ptosis. ENT: Ears normal, nares patent, oropharynx clear without exudates, moist mucous membranes. NECK: Trachea midline, full range of motion, supple. LUNGS: Breath sounds equal, clear to auscultation bilaterally, no wheezes, no crackles, no accessory muscle use. HEART: Regular rate and rhythm, S1, S2 without murmur, rub or gallop. ABDOMEN: Soft, nontender, nondistended, normoactive bowel sounds, no guarding, no rebound, no hepatosplenomegaly, no masses. EXTREMITIES: 2+ pulses, warm, well-perfused, no edema. NEUROLOGICAL: Cranial nerves II through XII grossly intact. Normal speech, gait not observed. PSYCH: Normal mood, normal affect. SKIN: Warm, dry, normal turgor, no rashes or lesions noted Laboratory Results - last 24 hr 05/21/17 05/21/17 06:10 06:10 WBC 12.0 H RBC 5.50 Hgb 16.6 Hct 49.0 MCV 89.1 MCH 30.2 MCHC 33.8 RDW 13.8 Plt Count 163 MPV 10.8 Neutrophils % 64.6 Lymphocytes % 26.3 Monocytes % 7.6 Eosinophils % 1.1 Basophils % 0.4 Sodium 141 Potassium 4.2 Chloride 103 Carbon Dioxide 29 Anion Gap 9 BUN 17 D Creatinine 1.0 Creat Clearance w eGFR > 60 Random Glucose 87 D Calcium 8.4 L Phosphorus 4.2 Magnesium 2.3 Total Bilirubin 1.0 AST 12 L D ALT 27 Alkaline Phosphatase 89 Total Protein 7.2 Albumin 3.7 Active Medications Generic Name Dose Route Start Last Admin Trade Name Freq PRN Reason Stop Dose Admin Acetaminophen/Codeine Phosphate 1 tab 05/19/17 14:35 Tylenol # 3 - PO Q4H PRN PAIN LEVEL 4 - 6 Chlorhexidine Gluconate 1 applic 05/19/17 22:00 05/20/17 21:20 Hibiclens For Decolonization - TP 1 applic HS [facility] Administration Docusate Sodium 100 mg 05/19/17 22:00 05/21/17 06:21 Colace - PO 100 mg TID [facility] Administration Fentanyl 50 mcg 05/19/17 14:47 Sublimaze Injection - IVPUSH [id number] PRN PAIN-PACU ORDER X 4 DOSES ONLY Levetiracetam 500 mg 05/19/17 22:00 05/21/17 09:55 Keppra - PO 500 mg BID [facility] Administration Morphine Sulfate 2 mg 05/19/17 14:38 05/20/17 21:29 Morphine Sulfate IVPUSH 2 mg Q4H PRN Administration PAIN LEVEL 7 - 10 Mupirocin 1 applic 05/19/17 22:00 05/21/17 09:55 Bactroban Ointment (For Decolonization) - NS 05/24/17 21:59 1 applic BID [facility] Administration Ondansetron HCl 4 mg 05/19/17 14:35 Zofran Injection IVPUSH Q6H PRN NAUSEA Ondansetron HCl 4 mg 05/19/17 14:47 05/19/17 16:47 Zofran Injection IVPUSH 4 mg Q6H PRN Administration NAUSEA AND/OR VOMITING Pantoprazole Sodium 40 mg 05/20/17 10:00 05/21/17 09:55 Protonix Iv IVPUSH 40 mg DAILY [facility] Administration Quetiapine Fumarate 200 mg 05/19/17 22:00 05/20/17 21:21 Seroquel - PO 200 mg HS [facility] Administration ASSESSMENT/PLAN: Mr. 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 POD #2. Subdural hematoma / post op -Monitor drain -Neuro checks as indicated by Dr. Gómez -Rina I/O's -Keppra 500 bid -Pain control as written -Transition to normal diet as tolerated Prophylactic -SCDs -PPI -Electrolytes PRN -Zofran PRN Visit type - Emergency Visit Emergency Visit: Yes ED Registration Date: 05/17/17 Care time: The patient presented to the Emergency Department on the above date and was hospitalized for further evaluation of their emergent condition. - New Patient This patient is new to me today: No - Critical Care Critical Care patient: Yes Total Critical Care Time (in minutes): 38 Critical Care Statement: The care of this patient involved high complexity decision making to prevent further life threatening deterioration of the patient 's condition and/or to evaluate & treat vital organ system(s) failure or risk of failure.
--- NOTE | 2017-05-21 14:05 | PN ---
Progress Note (short form) - Note Progress Note: pstient seen and examined C/o mild RAMIREZ no nausea or vomiting POD#2 NS removing 2nd drain surgical site clean Vital Signs Period Temp Pulse Resp BP Sys/Leblanc Pulse Ox Last 24 Hr 98.2 F-98.8 F 66-84 10-19 109-134/62-83 99-99 speech fluent / Oriented X3 heart s1/S2 lungs clear bilat abd soft non tender ext FROM [facility] CBC, BMP 05/21/17 06:10 05/21/17 06:10 Active Medications Acetaminophen/Codeine Phosphate (Tylenol # 3 -) 1 tab PO Q4H PRN PRN Reason: PAIN LEVEL 4 - 6 Chlorhexidine Gluconate (Hibiclens For Decolonization -) 1 applic TP HS [facility] 234 BEDS AT THE [facility] Last Admin: 05/20/17 21:20 Dose: 1 applic Docusate Sodium (Colace -) 100 mg PO TID [facility]CLUDE 234 BEDS AT THE [facility] Last Admin: 05/21/17 06:21 Dose: 100 mg Fentanyl (Sublimaze Injection -) 50 mcg IVPUSH [id number] PRN PRN Reason: PAIN-PACU ORDER X 4 DOSES ONLY Levetiracetam (Keppra -) 500 mg PO BID [facility] 234 BEDS AT [facility] Last Admin: 05/21/17 09:55 Dose: 500 mg Morphine Sulfate (Morphine Sulfate) 2 mg IVPUSH Q4H PRN PRN Reason: PAIN LEVEL 7 - 10 Last Admin: 05/20/17 21:29 Dose: 2 mg Mupirocin (Bactroban Ointment (For Decolonization) -) 1 applic NS BID [facility]S INCLUDE 234 BEDS AT [facility] Stop: 05/24/17 21:59 Last Admin: 05/21/17 09:55 Dose: 1 applic Ondansetron HCl (Zofran Injection) 4 mg IVPUSH Q6H PRN PRN Reason: NAUSEA Ondansetron HCl (Zofran Injection) 4 mg IVPUSH Q6H PRN PRN Reason: NAUSEA AND/OR VOMITING Last Admin: 05/19/17 16:47 Dose: 4 mg Pantoprazole Sodium (Protonix Iv) 40 mg IVPUSH DAILY [facility]CLUDE 234 BEDS AT [facility] Last Admin: 05/21/17 09:55 Dose: 40 mg Quetiapine Fumarate (Seroquel -) 200 mg PO [facility] Last Admin: 05/20/17 21:21 Dose: 200 mg # SDH s/p drainage SDH 2nd drain removed this am scheduled for repeat CT today to continue bedrest until later this afternoon Problem List - Problems (1) Subdural hematoma Code(s): I62.00 - NONTRAUMATIC SUBDURAL HEMORRHAGE, UNSPECIFIED (2) 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
[2017-05-21] MEDS ORDERED: PT OWN MED DRAWER 7, Y5N ONE (19:16)
[2017-05-21] MEDS: QUEtiapine FUMARATE 200 MG TABLET PO SCH (21:22)
[2017-05-21] MEDS: CHLORHEXIDINE GLUCONATE 4% CLEANSER FOR DECOLONIZATION TP SCH (22:30)
[2017-05-22] MEDS: DOCUSATE SODIUM 100 MG CAPSULE (FP) PO SCH ×3 (06:06→21:27)
--- NOTE | 2017-05-22 08:31 | PN ---
Progress Note (short form) - Note Progress Note: NEUROSURGERY POD #3 In ICU Mild incisional pain A little "foggy" in the morning Ate breakfast Tmax 999.4, AF, VSS CV- RRR; Lungs- CTA B; Abd- benign; Ext- so sign of DVT A/A/Ox4 CN- intact; Motor- 5/5; Sensation- intact; DTR- intact Head CT- stable postop appearance, evolving small residual fluid collection Wound instructions and f/u instruction given All questions answered D/C ICU team Tx to floor care If doing well could d/c home tomorrow
[2017-05-22] MEDS ORDERED: POLYETHYLENE GLYCOL 3350 119 GM BTL PO ONE (09:15)
[2017-05-22] MEDS ORDERED: PT OWN MED DRAWER 7, Y5N ONE (09:42)
[2017-05-22] MEDS: levETIRAcetam 500 MG TABLET (FP) PO SCH ×2 (10:16→21:27)
[2017-05-22] MEDS: PANTOPRAZOLE SODIUM 40 MG VIAL IVPUSH SCH (10:17)
[2017-05-22] MEDS: MUPIROCIN 2% TOPICAL OINTMENT FOR DECOLONIZATION NS SCH (10:18)
[2017-05-22] MEDS ORDERED: morphine SULFATE 4 MG/ML VIAL IVPUSH PRN (11:24)
[2017-05-22] MEDS ORDERED: ACETAMINOPHEN WITH CODEINE 300MG/30MG TABLET PO PRN (11:24)
[2017-05-22] MEDS ORDERED: ONDANSETRON 4 MG/2 ML VIAL IVPUSH PRN ×2 (11:24)
--- NOTE | 2017-05-22 11:52 | PN ---
Progress Note (short form) - Note Progress Note: 31 year old male history of Bilateral subdural Hematoma. He signed out ama on friday and later he was admitted for right arm tinglign and numbness. He has hematoma evacuation done and doing very well. PRIMARY Quetiapine Fumarate [Seroquel] 200 mg PO AM 08/16/14 Neurological examination Alert oriented x 3 CN all intact, eomi, pupils is reactive motor 5/5 all ext sensation is normal Assessment- Bilateral subdural heamtoma, S/P Hematoma evacuation, continue keppra for now and I would taper him off outpatient Thanking you so much Steven Rockwell MD
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
[2017-05-22] MEDS ORDERED: ALBUMIN HUMAN 25% 12.5 GM/50 ML VIAL IVPB ONE (13:00)
--- NOTE | 2017-05-22 13:16 | PN ---
Physical Exam: SUBJECTIVE: Mr. Esparza reports his pain is well controlled and he has been up and walking to the bathroom and back although he feels unsteady. He would also like something for constipation. OBJECTIVE: No acute events overnight Vital Signs Period Temp Pulse Resp BP Sys/Leblanc Pulse Ox Last 24 Hr 98.7 F-99.4 F 63-100 15-19 108-127/67-81 100-100 GENERAL: The patient is awake, alert, and fully oriented, in no acute distress. HEAD: +Bandage in place from surgery, otherwise atraumatic EYES: PERRL, extraocular movements intact, sclera anicteric, conjunctiva clear. No ptosis. ENT: Ears normal, nares patent, oropharynx clear without exudates, moist mucous membranes. NECK: Trachea midline, full range of motion, supple. LUNGS: Breath sounds equal, clear to auscultation bilaterally, no wheezes, no crackles, no accessory muscle use. HEART: Regular rate and rhythm, S1, S2 without murmur, rub or gallop. ABDOMEN: Soft, nontender, nondistended, normoactive bowel sounds, no guarding, no rebound, no hepatosplenomegaly, no masses. EXTREMITIES: 2+ pulses, warm, well-perfused, no edema. NEUROLOGICAL: Cranial nerves II through XII grossly intact. Normal speech, gait not observed. PSYCH: Normal mood, normal affect. SKIN: Warm, dry, normal turgor, no rashes or lesions noted Active Medications Generic Name Dose Route Start Last Admin Trade Name Freq PRN Reason Stop Dose Admin Acetaminophen/Codeine Phosphate 1 tab 05/22/17 11:24 Tylenol # 3 - PO Q4H PRN PAIN LEVEL 4 - 6 Docusate Sodium 100 mg 05/22/17 14:00 Colace - PO TID MANUEL Levetiracetam 500 mg 05/22/17 22:00 Keppra - PO BID MANUEL Morphine Sulfate 2 mg 05/22/17 11:24 Morphine Sulfate IVPUSH Q4H PRN PAIN LEVEL 7 - 10 Ondansetron HCl 4 mg 05/22/17 11:24 Zofran Injection IVPUSH Q6H PRN NAUSEA Pantoprazole Sodium 40 mg 05/23/17 10:00 Protonix - PO DAILY MANUEL Quetiapine Fumarate 200 mg 05/22/17 22:00 Seroquel - PO HS MANUEL ASSESSMENT/PLAN: Mr. 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 POD #3. Subdural hematoma / post op -Neuro checks as indicated by Dr. Gómez -Monitor I/O's -Keppra 500 bid -Pain control as written -Continue normal diet -Miralax for constipation Prophylactic -SCDs -PPI -Electrolytes PRN -Zofran PRN Disposition: To floor per Neurology Visit type - Emergency Visit Emergency Visit: Yes ED Registration Date: 05/17/17 Care time: The patient presented to the Emergency Department on the above date and was hospitalized for further evaluation of their emergent condition. - New Patient This patient is new to me today: No - Critical Care Critical Care patient: Yes Total Critical Care Time (in minutes): 35 Critical Care Statement: The care of this patient involved high complexity decision making to prevent further life threatening deterioration of the patient 's condition and/or to evaluate & treat vital organ system(s) failure or risk of failure.
--- NOTE | 2017-05-22 13:30 | PN ---
Progress Note (short form) - Note Progress Note: 31 y/o male s/p craniotomies for Bilateral Hematomas. States that headache and nausea are improving. Vital Signs Period Temp Pulse Resp BP Sys/Leblanc Pulse Ox Last 24 Hr 98.7 F-99.4 F 63-100 15-19 108-127/67-81 100-100 CBC, BMP 05/21/17 06:10 05/21/17 06:10 HEENT- Normocephalic, Pupils equal Neck- Supple Lungs- CTAB Heart- S1/S2 Abd- soft, NT Ext- Neg LE edema Neuro- Alert/ Oriented x 3 Nl Sensation Motor intact Active Medications Acetaminophen/Codeine Phosphate (Tylenol # 3 -) 1 tab PO Q4H PRN PRN Reason: PAIN LEVEL 4 - 6 Docusate Sodium (Colace -) 100 mg PO TID MANUEL Levetiracetam (Keppra -) 500 mg PO BID MANUEL Morphine Sulfate (Morphine Sulfate) 2 mg IVPUSH Q4H PRN PRN Reason: PAIN LEVEL 7 - 10 Ondansetron HCl (Zofran Injection) 4 mg IVPUSH Q6H PRN PRN Reason: NAUSEA Pantoprazole Sodium (Protonix -) 40 mg PO DAILY MANUEL Quetiapine Fumarate (Seroquel -) 200 mg PO HS MANUEL # SDH s/p drainage SDH Dsg in place Monitor Neuro/pain status Problem List - Problems (1) Subdural hematoma Code(s): I62.00 - NONTRAUMATIC SUBDURAL HEMORRHAGE, UNSPECIFIED (2) 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
[2017-05-22] MEDS: QUEtiapine FUMARATE 200 MG TABLET PO SCH (21:55)
[2017-05-23] MEDS: DOCUSATE SODIUM 100 MG CAPSULE (FP) PO SCH ×3 (05:32→21:05)
[2017-05-23] MEDS ORDERED: PANTOPRAZOLE SODIUM 40 MG VIAL IVPUSH SCH (10:00)
[2017-05-23] MEDS: levETIRAcetam 500 MG TABLET (FP) PO SCH ×2 (10:17→21:05)
[2017-05-23] MEDS: PANTOPRAZOLE 40 MG TABLET (FP) PO SCH (10:18)
--- NOTE | 2017-05-23 14:09 | PN ---
Progress Note (short form) - Note Progress Note: pstient seen and examined dressing in place dry / drains out ambulating in room reports a short episode of tremor to right arm and episode of rapid heart beat - ( vital at that time Hr 95) / palpitation ??- has not reoccurred no CP / SOB / no neuro deficit no complaints at this time Vital Signs Period Temp Pulse Resp BP Sys/Leblanc Pulse Ox Last 24 Hr 97.6 F-98.6 F 73-95 16-18 110-132/60-83 97-97 speech fluent / Oriented X3 heart s1/S2 lungs clear bilat abd soft non tender ext FROM / CCE NO tremors CBC, BMP 05/21/17 06:10 05/21/17 06:10 Active Medications Acetaminophen/Codeine Phosphate (Tylenol # 3 -) 1 tab PO Q4H PRN PRN Reason: PAIN LEVEL 4 - 6 Last Admin: 05/23/17 10:17 Dose: 1 tab Docusate Sodium (Colace -) 100 mg PO TID [facility] Last Admin: 05/23/17 13:20 Dose: Not Given Levetiracetam (Keppra -) 500 mg PO BID [facility] Last Admin: 05/23/17 10:17 Dose: 500 mg Morphine Sulfate (Morphine Sulfate) 2 mg IVPUSH Q4H PRN PRN Reason: PAIN LEVEL 7 - 10 Ondansetron HCl (Zofran Injection) 4 mg IVPUSH Q6H PRN PRN Reason: NAUSEA Pantoprazole Sodium (Protonix -) 40 mg PO DAILY [facility] Last Admin: 05/23/17 10:18 Dose: 40 mg Quetiapine Fumarate (Seroquel -) 200 mg PO HS [facility] Last Admin: 05/22/17 21:55 Dose: 200 mg # SDH s/p drainage SDH drains out defer to NS for d/c Problem List - Problems (1) Subdural hematoma Code(s): I62.00 - NONTRAUMATIC SUBDURAL HEMORRHAGE, UNSPECIFIED (2) 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
--- NOTE | 2017-05-23 17:03 | PN ---
Progress Note (short form) - Note Progress Note: NEUROSURGERY POD #4 On 8W Doing well per RN No reported problems Wound care instructions, discharge instructions, and f/u plan discussed previously d/c home today
[2017-05-23] MEDS: QUEtiapine FUMARATE 200 MG TABLET PO SCH (21:05)
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
[2017-05-24] MEDS: DOCUSATE SODIUM 100 MG CAPSULE (FP) PO SCH (06:30)
[2017-05-24] MEDS: PANTOPRAZOLE 40 MG TABLET (FP) PO SCH (09:52)
[2017-05-24] MEDS: levETIRAcetam 500 MG TABLET (FP) PO SCH (09:52)
--- NOTE | 2017-05-24 10:47 | PN ---
Progress Note (short form) - Note Progress Note: seen and examined in room ambulated in hallway neurologically intact feeling well Vital Signs Period Temp Pulse Resp BP Sys/Leblanc Pulse Ox Last 24 Hr 97.8 F-99.2 F 78-85 20-20 106-142/66-76 97 speech fluent / Oriented X3 heart s1/S2 lungs clear bilat abd soft non tender ext FROM / CCE NO tremors CBC, BMP 05/21/17 06:10 05/21/17 06:10 Microbiology 05/19/17 16:00 Brain Fluid Gram Stain - Final 05/19/17 16:00 Brain Fluid Body Fluid Culture - Final NO GROWTH OF AEROBIC ORGANISMS AFTER 48 HOURS INCUBATION 05/19/17 16:00 Brain Fluid Anaerobic Culture - Final NO ANAEROBES WERE ISOLATED 05/19/17 16:00 Brain Fluid Gram Stain - Final Active Medications Acetaminophen/Codeine Phosphate (Tylenol # 3 -) 1 tab PO Q4H PRN PRN Reason: PAIN LEVEL 4 - 6 Last Admin: 05/23/17 10:17 Dose: 1 tab Docusate Sodium (Colace -) 100 mg PO TID [facility] Last Admin: 05/24/17 06:30 Dose: 100 mg Levetiracetam (Keppra -) 500 mg PO BID [facility] Last Admin: 05/24/17 09:52 Dose: 500 mg Morphine Sulfate (Morphine Sulfate) 2 mg IVPUSH Q4H PRN PRN Reason: PAIN LEVEL 7 - 10 Ondansetron HCl (Zofran Injection) 4 mg IVPUSH Q6H PRN PRN Reason: NAUSEA Pantoprazole Sodium (Protonix -) 40 mg PO DAILY [facility] Last Admin: 05/24/17 09:52 Dose: 40 mg Quetiapine Fumarate (Seroquel -) 200 mg PO HS [facility] Last Admin: 05/23/17 21:05 Dose: 200 mg # SDH s/p drainage SDH drains out surgically and medically cleared for d/c discussed wound care / surgical follow up / and follow up with PCP Problem List - Problems (1) Subdural hematoma Code(s): I62.00 - NONTRAUMATIC SUBDURAL HEMORRHAGE, UNSPECIFIED (2) 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
[2017-05-24 11:23] VITALS: BP 119/61; PULSE 84; TEMP 98.3
== END 2017-05-24 13:41 | disposition home or self-care (01) | DRG 20 ==
LOC: JER 19:36 → J6S 22:03 → OBSVTOIN 05-17 15:50 → JICU 05-19 17:32 → J8W 05-22 12:53
PROVIDERS: ADMIT Family Medicine; ATTEND Family Medicine
PROC: 009400Z Drainage of Intracranial Subdural Space with Drainage Device, Open Approach (ICD-10-PCS; 2017-05-19)
PROC: 00C40ZZ Extirpation of Matter from Intracranial Subdural Space, Open Approach (ICD-10-PCS; principal; 2017-05-19 11:30)
PROC: 0WP Anatomical Regions, General, Removal (ICD-10-PCS; 2017-05-20)
DX: S06.5X0A Traumatic subdural hemorrhage without loss of consciousness, initial encounter (principal); G44.309 Post-traumatic headache, unspecified, not intractable; M62.81 Muscle weakness (generalized); F25.9 Schizoaffective disorder, unspecified; F32.9 Major depressive disorder, single episode, unspecified; X58.XXXA Exposure to other specified factors, initial encounter; Y93.89 Activity, other specified; Y92.89 Other specified places as the place of occurrence of the external cause; Y99.8 Other external cause status
CPT/HCPCS: 36415; 70450-TC; 80048; 80053; 83735; 84100; 85025; 85027; 85610; 85730; 86850; 86900; 86901; 87070; 87075; 87205; 94010; 94760; 97116-GP; 97161-GP; 99282-25; G0378; P9047

== ENCOUNTER 2017-06-04 02:36 | Emergency (ER) | payer OTHER ==
[2017-06-04 03:01] VITALS: BP 115/104; PULSE 113; TEMP 97.4; BMI 30.9
--- NOTE | 2017-06-04 03:21 | PDOC ---
History of Present Illness - General History Source: Patient, Old Records Exam Limitations: No Limitations - History of Present Illness Initial Comments: 06/04/17 04:36 Patient is a 31 year old male with a significant past medical history of subdural hematoma (s/p drainage @ our institution on 05/19), seizure disorder, schizoaffective disorder who presents to the ED with complaints of gradual headache and nausea that began 2 days ago. Patient reports experiencing increasing headache and nausea that began 2 days ago while at home that has shown no signs of subsiding. Patient reports since getting the craniotomy 2 weeks ago he wanted to come into the ED for further evaluation to make sure everything was ok. Denies chest pain, Sob. Denies nausea, vomiting. Denies contact with sick individuals, out of state travelling. Denies fevers, chills. Denies any other symptoms. Denies any trauma to affected area. Allergies: None Social history: No smoking. No alcohol. No illicit drugs. Surgical history: Left shoulder, Subdural hematoma drainage PMD: Dr. Gabriele Watts. <Ray Ta - Last Filed: 06/04/17 04:36> - General History Source: Patient <Sánchez Zuleta - Last Filed: 06/04/17 19:45> - General Chief Complaint: Nausea/Vomiting Stated Complaint: NAUSEA/VOMITING POST OP HEMATOMA DRAIN Time Seen by Provider: 06/04/17 03:16 Past History <Ray Ta - Last Filed: 06/04/17 04:36> - Past Medical History COPD: No Psychiatric Problems: Yes (SCHIZO-EFFECTIVE) - Surgical History Neurologic Surgery: Yes (SDH) - Suicide/Smoking/Psychosocial Hx Smoking History: Never smoked Have you smoked in the past 12 months: No Information on smoking cessation initiated: No Hx Alcohol Use: No Drug/Substance Use Hx: No Substance Use Type: None Hx Substance Use Treatment: No <Sánchez Zuleta - Last Filed: 06/04/17 19:45> - Past Medical History Allergies/Adverse Reactions: Allergies Allergy/AdvReac Type Severity Reaction Status Date / Time No Known Allergies Allergy Verified 06/04/17 02:59 Home Medications: Ambulatory Orders Quetiapine Fumarate [Seroquel] 200 mg PO AM 08/16/14 levETIRAcetam [Keppra -] 500 mg PO BID 30 Days #60 tablet 05/23/17 Acetaminophen [Tylenol] 650 mg PO QID #30 tablet 06/04/17 Amoxicillin - [Amoxicillin 875mg Tablet -] 875 mg PO BID #14 tab 06/04/17 Ondansetron [Zofran *Odt*] 4 mg SL TID #30 od.tablet 06/04/17 Review of Systems - Review of Systems Able to Perform ROS?: Yes Comments:: 06/04/17 04:36 CONSTITUTIONAL: +Headache. Absent: fever, no chills, no fatigue EYES: Absent: visual changes ENT: Absent: ear pain, no sore throat CARDIOVASCULAR: Absent: chest pain, no palpitations RESPIRATORY: Absent: cough, no SOB GI: +Nausea. Absent: abdominal pain, no vomiting, no constipation, no diarrhea GENITOURINARY: Absent: dysuria, no frequency, no hematuria MUSCULOSKELETAL: Absent: back pain, no arthralgia, no myalgia SKIN: Absent: rash <Ray Ta - Last Filed: 06/04/17 04:36> *Physical Exam - Vital Signs Last Vital Signs Temp Pulse Resp BP Pulse Ox 97.4 F L 113 H 14 115/104 95 06/04/17 02:59 06/04/17 02:59 06/04/17 02:59 06/04/17 02:59 06/04/17 02:59 - Physical Exam Comments: 06/04/17 04:36 GENERAL: Well-appearing, well-nourished. No apparent distress. HEENT: Normocephalic, atraumatic. PERRL, EOM intact. CARDIOVASCULAR: Normal S1, S2. Regular rate and rhythm. PULMONARY: Clear to auscultation bilaterally. ABDOMEN: Soft, non-distended, non-tender. EXTREMITIES: Normal ROM in all four extremities. No gross deformities. SKIN: Warm, dry. No rash NEUROLOGICAL: No focal neurological deficits. <Ray Ta - Last Filed: 06/04/17 04:36> - Vital Signs Last Vital Signs Temp Pulse Resp BP Pulse Ox 97.4 F L 113 H 14 115/104 95 06/04/17 02:59 06/04/17 02:59 06/04/17 02:59 06/04/17 02:59 06/04/17 02:59 <Sánchez Zuleta - Last Filed: 06/04/17 19:45> ED Treatment Course - Medications Given in the ED: ED Medications Discontinued Medications Generic Name Dose Route Start Last Admin Trade Name Kranthi PRN Reason Stop Dose Admin Acetaminophen 975 mg 06/04/17 03:37 06/04/17 04:21 Tylenol - PO 06/04/17 03:38 975 mg ONCE ONE Administration Amoxicillin 500 mg 06/04/17 04:26 06/04/17 04:32 Amoxicillin - PO 06/04/17 04:27 500 mg ONCE ONE Administration Ondansetron HCl 4 mg 06/04/17 03:22 06/04/17 04:21 Zofran Odt - SL 06/04/17 03:23 4 mg ONCE ONE Administration <Ray Ta - Last Filed: 06/04/17 04:36> Medical Decision Making - Medical Decision Making 06/04/17 19:45 Dr. Zuleta: The scribe's documentation has been prepared under my direction and personally reviewed by me in its entirery. I confirm that the note above accurately reflects all work, treatment, procedures, and medical decision making performed by me. <Sánchez Zuleta - Last Filed: 06/04/17 19:45> *DC/Admit/Observation/Transfer - Attestations Scribe Attestion: 06/04/17 04:36 Documentation prepared by Ray Ta, acting as medical psychotherapist for Sánchez Zuleta MD/DO. <Ray Ta - Last Filed: 06/04/17 04:36> - Discharge Dispostion Admit: No <Sánchez Zuleta - Last Filed: 06/04/17 19:45> Diagnosis at time of Disposition: Headache, Sinusitis - Discharge Dispostion Disposition: HOME Condition at time of disposition: Stable - Prescriptions Prescriptions: Acetaminophen [Tylenol] 650 mg PO QID #30 tablet Amoxicillin - [Amoxicillin 875mg Tablet -] 875 mg PO BID #14 tab Ondansetron [Zofran *Odt*] 4 mg SL TID #30 od.tablet - Referrals Referrals: Gabriele Watts MD [Primary Care Provider] - - Patient Instructions Printed Discharge Instructions: DI for Sinusitis, DI for Headache - Post Discharge Activity
[2017-06-04] MEDS ORDERED: ONDANSETRON *ODT* 4 MG TABLET SL ONE (03:22)
[2017-06-04] MEDS ORDERED: ACETAMINOPHEN 325 MG TABLET (FP) PO ONE (03:37)
[2017-06-04] MEDS ORDERED: ACETAMINOPHEN 325 MG TABLET (FP) ONE (04:19)
[2017-06-04] MEDS ORDERED: ONDANSETRON *ODT* 4 MG TABLET ONE (04:19)
[2017-06-04] MEDS ORDERED: AMOXICILLIN 500 MG CAPSULE (FP) PO ONE (04:26)
[2017-06-04] MEDS ORDERED: AMOXICILLIN 500 MG CAPSULE (FP) ONE (04:31)
== END 2017-06-04 04:53 | disposition home or self-care (01) ==
LOC: JER 02:36
DX: R51 Headache (principal); J32.9 Chronic sinusitis, unspecified; F25.9 Schizoaffective disorder, unspecified
CPT/HCPCS: 70450-TC; 99282-25; Q0162

== ENCOUNTER 2017-08-08 17:31 | Emergency (ER) | payer OTHER ==
--- NOTE | 2017-08-08 17:41 | PDOC ---
Rapid Medical Evaluation Chief Complaint: Headache Time Seen by Provider: 08/08/17 17:36 Medical Evaluation: Allergies Allergy/AdvReac Type Severity Reaction Status Date / Time No Known Allergies Allergy Verified 08/08/17 17:33 08/08/17 17:38 I have performed a brief in-person evaluation of this patient. The patient presents with a chief complaint of: RAMIREZ and dizziness. H/o subdural hematoma (s/p drainage at R 05/19), seizure d/o, schizoaffective d/o Pertinent physical exam findings:stable and well francy, no focal deficits I have ordered the following:nothing The patient will proceed to the ED for further evaluation. Discharge Disposition - Diagnosis Headache Qualifiers: Headache type: unspecified Headache chronicity pattern: unspecified pattern Intractability: not intractable Qualified Code(s): R51 - Headache - Referrals - Patient Instructions - Post Discharge Activity
[2017-08-08 17:43] VITALS: BP 142/102; PULSE 97; TEMP 99.1; BMI 33.1
--- NOTE | 2017-08-08 19:34 | PDOC ---
Attending Attestation - Resident Resident Name: Jayce Maurice - HPI HPI: 08/08/17 22:14 Pt presents to the ED complaining of moderate frontal headache that started three days ago. Pain is intermittent, throbbing and frontal. Denies other associated symptoms except for an episode of lightheadness that lasted for seconds and then spontaneously resolved. Patient has history of SDH with craniotomy in May. States that he has been experiencing intermittent headaches since the operation, but that they had gotten better. Denies fever, nausea or vomiting. - Physicial Exam PE: 08/08/17 23:28 Agree with resident exam. PAtient is alert and oriented and neurologically intact. Lungs are clear. Heart has regular rate and rhythm. - Medical Decision Making 08/08/17 23:29 pt presents to the ED complaining of diffuse headache. well appearing inthe ED. CT head performed to rule out intracranial bleed and is negative. Will discharge home with instructions to return for worsening symptoms.
--- NOTE | 2017-08-08 19:55 | PDOC ---
History of Present Illness - General Chief Complaint: Headache Stated Complaint: HEADACHE Time Seen by Provider: 08/08/17 17:36 History Source: Patient - History of Present Illness Initial Comments: 08/08/17 20:03 31m with pmh of bilateral subdural hematoma s/p craniotomy 10 weeks ago at our institution presents with 3 days of bilateral headache and and episode of dizziness/difficulty focusing while outside in the sun today. The headache is currently mild and the patient denies any change in vision, focal deficit or weakness. 08/08/17 21:41 Past History - Past Medical History Allergies/Adverse Reactions: Allergies Allergy/AdvReac Type Severity Reaction Status Date / Time No Known Allergies Allergy Verified 08/08/17 17:33 Home Medications: Ambulatory Orders Quetiapine Fumarate [Seroquel] 200 mg PO AM 08/16/14 levETIRAcetam [Keppra -] 500 mg PO BID 30 Days #60 tablet 05/23/17 COPD: No Psychiatric Problems: Yes (SCHIZO-EFFECTIVE) Other medical history: subdural hematoma - Surgical History Neurologic Surgery: Yes (SDH) - Immunization History Immunization Up to Date: No - Suicide/Smoking/Psychosocial Hx Smoking History: Never smoked Have you smoked in the past 12 months: No Hx Alcohol Use: No Drug/Substance Use Hx: No Substance Use Type: None Hx Substance Use Treatment: No Review of Systems - Review of Systems Able to Perform ROS?: Yes Is the patient limited Ugandan proficient: No Constitutional: No: Symptoms Reported HEENTM: No: Symptoms Reported Respiratory: No: Symptoms reported Cardiac (ROS): No: Symptoms Reported ABD/GI: No: Symptoms Reported *Physical Exam - Vital Signs Last Vital Signs Temp Pulse Resp BP Pulse Ox 99.1 F 97 H 18 142/102 99 08/08/17 17:33 08/08/17 17:33 08/08/17 17:33 08/08/17 17:33 08/08/17 17:33 - Physical Exam General Appearance: Yes: Nourished, Appropriately Dressed. No: Apparent Distress HEENT: positive: EOMI, MAD[place], Normal ENT Inspection Respiratory/Chest: positive: Lungs Clear, Normal Breath Sounds. negative: Chest Tender, Respiratory Distress Cardiovascular: positive: Regular Rhythm, Regular Rate, S1, S2 Gastrointestinal/Abdominal: positive: Normal Bowel Sounds, Flat, Soft. negative : Tender Neurologic: positive: Fully Oriented, Alert, Normal Mood/Affect ED Treatment Course - LABORATORY CBC & Chemistry Diagram: 08/08/17 19:55 08/08/17 19:55 - RADIOLOGY Radiology Studies Ordered: Category Date Time Status HEAD CT WITHOUT CONTRAST [CT] Stat CT Scan 08/08/17 19:53 Ordered Medical Decision Making - Medical Decision Making 08/08/17 21:41 CT head negative for acute processes. Follow up with neurologist *DC/Admit/Observation/Transfer Diagnosis at time of Disposition: Headache Qualifiers: Headache type: unspecified Headache chronicity pattern: unspecified pattern Intractability: not intractable Qualified Code(s): R51 - Headache - Discharge Dispostion Condition at time of disposition: Improved Decision to Admit order: No - Referrals Referrals: Gabriele Watts MD [Primary Care Provider] - - Patient Instructions Printed Discharge Instructions: DI for Headache Additional Instructions: Follow up with your neurologist within the week. Come back to the emergency department for any new, worsening or concerning symptom. - Post Discharge Activity
[2017-08-08] MEDS ORDERED: POTASSIUM CHLORIDE TABS 20 MEQ TABLET.ER (FP) PO ONE (19:59)
[2017-08-08 20:05] LABS: EOS % 2.5 % (0-4.5); HEMATOCRIT 48.8 % (35.4-49); HEMOGLOBIN 16.4 GM/dL (11.7-16.9); MCH 29.2 pg (25.7-33.7); MCHC 33.5 g/dl (32.0-35.9); MEAN CELL VOLUME 87.1 fl (80-96); MEAN PLT VOLUME 10.6 fl (7.5-11.1); MONO % 7.6 % (3.8-10.2); NEUT % 58.9 % (42.8-82.8); PLATELET COUNT 169 K/MM3 (134-434); RBC 5.61 M/mm3 (4.00-5.60); RDW 14.1 % (11.9-15.9); WHITE BLOOD COUNT 8.1 K/mm3 (4.0-10.0)
[2017-08-08 20:46] LABS: ALBUMIN 4.2 g/dl (3.4-5.0); ANION GAP 3 (8-16); BLOOD UREA NITROGEN 13 mg/dL (7-18); CALCIUM 8.9 mg/dL (8.5-10.1); CHLORIDE 105 mmol/L (98-107); CO2 30 mmol/L (21-32); CREATININE 1.2 mg/dL (0.7-1.3); GLUCOSE,RANDOM 92 mg/dL (74-106); POTASSIUM 4.4 mmol/L (3.5-5.1); SGOT/AST 37 U/L (15-37); SGPT/ALT 76 U/L (12-78); SODIUM 138 mmol/L (136-145)
[2017-08-08 20:48] LABS: ALK PHOS 108 U/L (45-117); BILIRUBIN,TOTAL 0.6 mg/dL (0.2-1.0); TOT PROT 7.8 g/dl (6.4-8.2)
== END 2017-08-08 21:49 | disposition home or self-care (01) ==
LOC: JER 17:31
DX: R51 Headache (principal); F25.9 Schizoaffective disorder, unspecified; Z86.2 Personal history of diseases of the blood and blood-forming organs and certain disorders involving the immune mechanism
CPT/HCPCS: 36415; 70450-TC; 80053; 85025; 99282-25

== ENCOUNTER 2018-10-10 23:47 | Emergency (ER) | payer OTHER | END 2018-10-11 03:58 | disposition home or self-care (01) | LOC: JER 23:47 | DX: R20.2 Paresthesia of skin (principal); F41.9 Anxiety disorder, unspecified; F43.10 Post-traumatic stress disorder, unspecified; R56.9 Unspecified convulsions ==

== ENCOUNTER 2019-01-08 17:20 | Emergency (ER) | payer OTHER ==
[2019-01-08 17:36] VITALS: BMI 33.0
--- NOTE | 2019-01-08 17:39 | PDOC ---
Rapid Medical Evaluation Medical Evaluation: Allergies Allergy/AdvReac Type Severity Reaction Status Date / Time No Known Allergies Allergy Verified 10/11/18 00:05 Vital Signs Temp Pulse Resp BP Pulse Ox 98.3 F 94 H 18 129/90 99 01/08/19 17:34 01/08/19 17:34 01/08/19 17:34 01/08/19 17:34 01/08/19 17:34 I have performed a brief in-person evaluation of this patient. The patient presents with a chief complaint of: C/O body aches, fatigue and off balance x 3 days; denies vomiting, blurred vision; sees floaters occasionally; hx of B/L subdural hematoma s/p craniotomy 1.5 years ago Pertinent physical exam findings: In NAD, no focal deficits, normal gait I have ordered the following: CT head The patient will proceed to the ED for further evaluation. 01/08/19 17:37
--- NOTE | 2019-01-08 18:07 | PDOC ---
History of Present Illness - General Chief Complaint: Weakness Stated Complaint: BODYACHES / FATIGUE Time Seen by Provider: 01/08/19 17:36 - History of Present Illness Initial Comments: The pt is a 33M w/ a history of traumatic SDH who presents for evaluation of 1 week of generalized fatigue and myalgias. He endorses associated nasal congestion and post-nasal drip. He has taken Tylenol at home with moderate relief. He denies fevers/chills, cough, chest pain, trouble breathing, N/V, abdominal pain, diarrhea, dysuria, hematuria, or rash. Pt also reported intermittent instability with gait. 01/08/19 18:34 Past History - Past Medical History Allergies/Adverse Reactions: Allergies Allergy/AdvReac Type Severity Reaction Status Date / Time No Known Allergies Allergy Verified 01/08/19 17:37 Home Medications: Ambulatory Orders Quetiapine Fumarate [Seroquel] 200 mg PO AM 08/16/14 levETIRAcetam [Keppra -] 125 mg PO DAILY 10/11/18 COPD: No Psychiatric Problems: Yes (SCHIZO-EFFECTIVE) Seizures: Yes - Surgical History Neurologic Surgery: Yes (SDH) - Immunization History Immunization Up to Date: No - Psycho Social/Smoking Cessation Hx Smoking History: Never smoked Have you smoked in the past 12 months: No Hx Alcohol Use: No Drug/Substance Use Hx: No Substance Use Type: None Hx Substance Use Treatment: No Review of Systems - Review of Systems Able to Perform ROS?: Yes Comments:: GENERAL/CONSTITUTIONAL: No fever or chills. HEAD, EYES, EARS, NOSE AND THROAT: No change in vision. No change in hearing. No sore throat CARDIOVASCULAR: No chest pain or shortness of breath RESPIRATORY: Denies cough, hemoptysis GASTROINTESTINAL: No nausea, vomiting, diarrhea or constipation GENITOURINARY: No dysuria, frequency, or change in urination MUSCULOSKELETAL: No joint or muscle swelling or pain. No neck or back pain SKIN: No rash NEUROLOGIC: No headache, vertigo, loss of consciousness, or change in strength/ sensation ENDOCRINE: No increased thirst. No abnormal weight change HEMATOLOGIC/LYMPHATIC: No anemia, easy bleeding, or history of blood clots ALLERGIC/IMMUNOLOGIC: No hives or skin allergy 01/08/19 18:07 Is the patient limited Armenian proficient: No *Physical Exam - Vital Signs Last Vital Signs Temp Pulse Resp BP Pulse Ox 98.3 F 94 H 18 129/90 99 01/08/19 17:34 01/08/19 17:34 01/08/19 17:34 01/08/19 17:34 01/08/19 17:34 - Physical Exam Comments: GENERAL: Awake, alert, and oriented to person/place/time, in no acute distress HEAD: No signs of trauma, normocephalic, atraumatic EYES: PERRLA, EOMI, sclera anicteric, conjunctiva clear ENT: Hearing grossly normal, nares patent, oropharynx clear without exudates. Moist mucosa LUNGS: No distress, speaks in full sentences, clear to auscultation bilaterally HEART: Regular rate and rhythm, normal S1 and S2, no murmurs appreciated, periperal pulses normal and equal bilaterally ABDOMEN: Soft, nontender, normoactive bowel sounds. No guarding, no rebound. No masses EXTREMITIES: Normal inspection, Normal range of motion, no edema. No clubbing or cyanosis NEUROLOGICAL: Cranial nerves II through XII grossly intact. Normal speech, ambulating with stable gait, no focal sensorimotor deficits SKIN: Warm, Dry 01/08/19 18:07 ED Treatment Course - RADIOLOGY Radiograph Interpretation: CT/HEAD CT WITHOUT CONTRAST Impression: No CT evidence of acute intracranial pathology. Status post bilateral frontal craniotomies as on a previous CT exam of 2018. Interval development of left maxillary sinusitis is noted. Chronic right maxillary sinusitis as on the prior exam. 01/08/19 18:58 Medical Decision Making - Medical Decision Making The pt is a 33M w/ a history of traumatic SDH who presents for evaluation of 1 week of generalized fatigue and myalgias with nasal congestion likely 2/[address] head ordered from [facility] Rapid flu sent Ibuprofen, Tylenol, an Sudafed for symptomatic relief 01/08/19 18:36 CT head with chronic right sinusitis (pt aware), interval development of acute left sinusitis Rapid flu neg Symptoms likely 2/2 viral URI Pt feels improved s/p meds Plan for D/C w/ PCP f/u Discharge instructions and return precautions given Patient in agreement and verbalized understanding Dispo: Home 01/08/19 18:58 Discharge - Discharge Information Problems reviewed: Yes Clinical Impression/Diagnosis: Viral syndrome Condition: Stable - Admission No - Follow up/Referral Referrals: Gabriele Watts MD [Primary Care Provider] - - Patient Discharge Instructions Patient Printed Discharge Instructions: DI for Viral Syndrome Additional Instructions: You were seen for evaluation in the Emergency Department. Your symptoms are likely due to a viral infection. Your flu swab was negative. Your CT was notable for a chronic right sinusitis and acute left sinusitis (likely due to this virus). Review the handout provided at discharge. Your may take Ibuprofen, Tylenol, Sudafed for your symptoms. Return to the Emergency Department if you develop fevers, chest pain, trouble breathing, worsening pain, change in sensation, worsening symptoms, or any new/concerning symptoms. - Post Discharge Activity
[2019-01-08] MEDS ORDERED: ACETAMINOPHEN 500 MG TABLET (FP) PO ONE (18:28)
[2019-01-08] MEDS ORDERED: IBUPROFEN 600 MG TABLET (FP) PO ONE ×2 (18:28→18:37)
[2019-01-08] MEDS ORDERED: PSEUDOEPHEDRINE HCL 30 MG TABLET PO ONE (18:29)
[2019-01-08] MEDS ORDERED: ACETAMINOPHEN 325 MG TABLET (FP) ONE (18:36)
[2019-01-08] MEDS ORDERED: PSEUDOEPHEDRINE HCL 60 MG TABLET ONE (18:37)
[2019-01-08 19:34] VITALS: BP 129/70; PULSE 70; TEMP 98
--- NOTE | 2019-01-08 22:42 | PDOC ---
Documentation entered by León Costello SCRIBE, acting as scribe for Yulia Arevalo MD. Yulia Arevalo MD: This documentation has been prepared by the Pravin sommers Daniel, SCRIBE, under my direction and personally reviewed by me in its entirety. I confirm that the documentation accurately reflects all work, treatment, procedures, and medical decision making performed by me. Attending Attestation - Resident Resident Name: Nilo Levine - ED Attending Attestation I have performed the following: I have examined & evaluated the patient, The case was reviewed & discussed with the resident, I agree w/resident's findings & plan, Exceptions are as noted - HPI HPI: 01/08/19 19:06 33yoM hx of traumatic SDH presents w/ c/o viral syndrome x few days -- congestion, fatigue, body aches, etc. Taking tylenol for symptoms. No fevers, no head trauma, no headaches. - Physicial Exam PE: 01/08/19 19:07 Vital Signs - 24 hr 01/08/19 17:34 Temperature 98.3 F Pulse Rate 94 H Respiratory 18 Rate Blood Pressure 129/90 O2 Sat by Pulse 99 Oximetry (%) NAD, well appearing, eating + congesion no cervical LAD post OP WNL RRR CTABL soft NTND gait, balance, speech WNL A&O x 3 - Medical Decision Making 01/08/19 19:07 33yoM w/ viral syndrome. - marleni maldonado DC
== END 2019-01-08 19:31 | disposition home or self-care (01) ==
LOC: JER 17:20
DX: B34.8 Other viral infections of unspecified site (principal); J32.0 Chronic maxillary sinusitis; Z87.820 Personal history of traumatic brain injury; G40.909 Epilepsy, unspecified, not intractable, without status epilepticus; F25.9 Schizoaffective disorder, unspecified
CPT/HCPCS: 70450-TC; 87804; 99282-25

== ENCOUNTER 2019-06-09 12:45 | Emergency (ER) | payer OTHER ==
[2019-06-09 12:50] VITALS: BP 124/91; PULSE 103; TEMP 99.6
== END 2019-06-09 14:17 | disposition home or self-care (01) ==
LOC: JER 12:45
DX: J18.9 Pneumonia, unspecified organism (principal)
CPT/HCPCS: 71045-TC-FY; 99283-25

== ENCOUNTER 2020-09-28 19:27 | Emergency (ER) | payer OTHER ==
[2020-09-28 19:39] VITALS: BP 131/86; PULSE 91; TEMP 98.2; BMI 31.8
[2020-09-28] MEDS ORDERED: DEXAMETHASONE SOD PHOSPHATE 10 MG/1 ML VIAL IM ONE (20:02)
[2020-09-28] MEDS ORDERED: DEXAMETHASONE SOD PHOSPHATE 10 MG/1 ML VIAL ONE (20:07)
== END 2020-09-28 20:34 | disposition home or self-care (01) ==
LOC: JERFT 19:27
PROC: 3E023NZ Introduction of Analgesics, Hypnotics, Sedatives into Muscle, Percutaneous Approach (ICD-10-PCS; principal; 2020-09-28)
DX: K13.79 Other lesions of oral mucosa (principal); J02.0 Streptococcal pharyngitis
CPT/HCPCS: 87880; 99283-25; C9803; J1100; U0003; U0005

== ENCOUNTER 2021-11-28 00:36 | Emergency (ER) | payer OTHER ==
[2021-11-28] MEDS ORDERED: IBUPROFEN 400 MG TABLET (FP) PO ONE ×2 (00:53→01:01)
[2021-11-28 00:54] VITALS: BP 136/93; PULSE 93; RESP 18; TEMP 99.8; BMI 30.6
[2021-11-28 01:28] LABS: THROAT:GRP A STREP NOT DETECTED (NOTDETECTED)
== END 2021-11-28 01:52 | disposition home or self-care (01) ==
LOC: JERFT 00:36 → JER 00:36 → JERFT 01:52
DX: U07.1 COVID-19 (principal)
CPT/HCPCS: 0241U-QW; 87651; 99283-25